=== PATIENT | female | born 1950 | race Caucasian/White ===

== ENCOUNTER → 2017-01-07 | Outpatient (CLI) | payer MEDICARE | END | disposition home or self-care (01) | LOC: CFH 11:46 | PROVIDERS: ATTEND Internal Medicine Geriatric Medicine | DX: M43.12 Spondylolisthesis, cervical region (principal); M43.23 Fusion of spine, cervicothoracic region; M48.02 Spinal stenosis, cervical region | CPT/HCPCS: 72050 ==